=== PATIENT | female | born 1990 | race Caucasian/White ===

== ENCOUNTER 2020-03-22 00:32 | Outpatient (CLI) | payer BC ==
[2020-03-22 01:49] VITALS: BP 130/72; PULSE 76; RESP 16; TEMP 97.1
--- NOTE | 2020-03-22 07:15 | P.MSEPDOC ---
Presenting Problems - Arrival Data Date of Arrival on Unit: 03/22/20 Time of Arrival on Unit: 00:32 Mode of Transport: Ambulatory - Complaint OB-Reason for Admission/Chief Complaint: Possible Onset of Labor Medical History - Information : 1 Para: 0 Term: 0 : 0 Abortions: Spontaneous or Elective: 0 Number of Living Children: 0 - Gestational Age Gestational Age by NIRALI (wks/days): 39 Weeks and 4 Days Review of Systems - Review of Systems Constitutional: No problems Breast: No problems ENT: No problems Cardiovascular: No problems Respiratory: No problems Gastrointestinal: No problems Genitourinary: No problems Musculoskeletal: No problems Neurological: No problems Skin: No problems Vital Signs - Temperature Temperature: 97.1 F Temperature Source: Oral - Pulse Right Pulse Rate: 76 Pulse Assessment Method: Automatic Cuff - Respirations Respiratory Rate: 16 Oxygen Delivery Method: Room Air O2 Sat by Pulse Oximetry: 98 - Blood Pressure Right Arm Blood Pressure: 130/72 Blood Pressure Mean: 91 Blood Pressure Source: Automatic Cuff Medical Screen Scoring (Pre) - Cervical Exam Dilation: 1-3 cm = 1 Effacement: More than 50% = 2 Membranes: Intact - Uterine Contractions Frequency: N/A Duration: N/A Intensity: N/A - Maternal Vital Signs Maternal Temperature: N/A Maternal Blood Pressure: N/A Signs of Preeclampsia: N/A Maternal Respirations: N/A - Maternal Trauma Maternal Trauma: N/A - Assessment - Baby A Baseline FHR: 130 Heart Rate - NICHD Category: Category I (Normal) = 0 NST: Reactive Position: N/A Station: N/A - Total Score - Baby A Total Score - Baby A: 3 - Total Score - Baby B Total Score - Baby B: 3 - Total Score - Baby C Total Score - Baby C: 3 - Level of Risk - Baby A Level of Risk - Baby A: Low (0-5) - Level of Risk - Baby B Level of Risk - Baby B: Low (0-5) - Level of Risk - Baby C Level of Risk - Baby C: Low (0-5) Physician Notification (Pre) - Physician Notified Physician Notified Date: 03/22/20 Physician Notified Time: 01:41 New Order Received: Yes (discharge home with instructions) Disposition - Disposition OB Disposition: Discharge to home Discharge Date: 03/22/20 Discharge Time: 01:45 I agree with the RN Medical Screening Exam: Yes Risk & Benefit of care provided described in d/c instruction: Yes Diagnosis: FALSE LABOR AT OR AFTER 37 COMPLETED WEEKS OF GESTATION
== END 2020-03-22 01:45 | disposition home or self-care (01) ==
LOC: FBPOP 00:32
PROVIDERS: ATTEND Obstetrics & Gynecology
DX: O47.1 False labor at or after 37 completed weeks of gestation (principal); Z3A.39 39 weeks gestation of pregnancy
CPT/HCPCS: 59025; 99213

== ENCOUNTER 2020-03-22 22:27 | Inpatient (IN) | payer BC ==
[2020-03-22] MEDS ORDERED: OXYTOCIN 10 UNIT/ML 1 ML VIAL IM PRN (23:10)
[2020-03-22] MEDS ORDERED: CARBOPROST TROMETHAMINE 250 MCG/ML 1 ML AMP IM PRN (23:10)
[2020-03-22] MEDS ORDERED: LIDOCAINE 0.5% (PF) 5 MG/ML (50 ML SDV) SQ PRN (23:10)
[2020-03-22] MEDS ORDERED: METHYLERGONOVINE 0.2 MG/ML 1 ML AMP IM PRN (23:10)
[2020-03-22] MEDS ORDERED: TERBUTALINE 1 MG/ML VIAL SQ PRN (23:10)
[2020-03-22] MEDS ORDERED: AMPICILLIN 2,000 MG in SODIUM CHLORIDE 0.9% 100 ML IVPB STA (23:33)
--- NOTE | 2020-03-22 23:56 | P.HPOB ---
History of Present Illness H&P Date: 03/22/20 Chief Complaint: Contractions This patient is a pleasant 29-year-old 1 para 0 female estimated date of confinement 03/25/2020 estimated gestational age 39-4/7 weeks who presents to labor and delivery with complaints of contractions. She is here earlier today and was 1-2 cm dilated is now 4 cm dilated early labor. Patient did have a slightly positive amnio sure however had some blood on the test strip therefore's thought to be negative. Patient denies any leaking of fluid. care is per Dr. Villeda appears to be uncomplicated. Patient does have a positive group B strep culture. Review of Systems Genitourinary: Reports Menstruation: Reports amenorrhea Past Medical History Past Medical History: No Reported History History of Any Multi-Drug Resistant Organisms: MRSA Date of last positivie culture/infection: 2012 MDRO Source:: R leg Past Surgical History: No Surgical Hx Reported Past Anesthesia/Blood Transfusion Reactions: No Reported Reaction Past Psychological History: No Psychological Hx Reported Smoking Status: Never smoker Past Alcohol Use History: None Reported Past Drug Use History: None Reported Medications and Allergies Home Medications Medication Instructions Recorded Confirmed Type Pnv,Calcium 72/Iron/Folic Acid 1 tab PO DAILY 03/22/20 03/22/20 History [ Plus Tablet] Allergies Allergy/AdvReac Type Severity Reaction Status Date / Time Sulfa (Sulfonamide Allergy Rash/Hives Verified 03/22/20 22:44 Antibiotics) sulfamethoxazole Allergy Rash/Hives Verified 03/22/20 22:44 [From Bactrim] trimethoprim [From Bactrim] Allergy Rash/Hives Verified 03/22/20 22:44 Exam Intake and Output 03/22/20 03/22/20 03/23/20 14:59 22:59 06:59 Other: Weight 85.729 kg - OBG Physical Exam Abdomen: bowel sounds normal, no diffuse tenderness, no bruit present, no guarding noted, no hepatomegaly, no splenomegaly, no mass Vulva: both: normal Vagina: normal moisture, no discharge Cervix: no lesion (Cervix is 4 cm dilated 80 percent effaced -2 station), no discharge Uterus: enlarged (Fundal height was 39 cm in the office) Results blood work shows she is A-, rubella immune, RPR is nonreactive, hepatitis B is negative, HIV is nonreactive, Glucola was abnormal with a normal three-hour gtt. Group B strep was positive. Patient received RhoGAM on January 02. Growth ultrasound was normal. Assessment and Plan Assessment: This is a pleasant 29-year-old 1 para 0 female 39-4/7 weeks gestation presents to labor and delivery in early labor. Patient also has a positive strep culture. Plan is antibiotic prophylaxis and anticipate vaginal delivery. (1) 39 weeks gestation of Current Visit: Yes Status: Acute Code(s): Z3A.39 - 39 WEEKS GESTATION OF SNOMED Code(s): 25914988 (2) Normal labor Current Visit: Yes Status: Acute Code(s): O80 - ENCOUNTER FOR FULL-TERM UNCOMPLICATED DELIVERY; Z37.9 - OUTCOME OF DELIVERY, UNSPECIFIED SNOMED Code( s): 66627288 (3) Group B streptococcal carriage complicating Current Visit: Yes Status: Acute Code(s): O99.820 - STREPTOCOCCUS B CARRIER STATE COMPLICATING SNOMED Code(s): 695476974650277
[2020-03-23] MEDS: LACTATED RINGERS 1,000 ML IV SCH ×3 (00:24→09:12)
[2020-03-23 00:53] LABS: Basophils % (A) 0 %; Eosinophils # (A) 0.1 k/uL (0-0.7); Eosinophils % (A) 1 %; HCT 37.8 % (34.0-46.0); HGB 12.4 gm/dL (11.4-16.0); Lymphocytes # (A) 1.1 k/uL (1.0-4.8); Lymphocytes % (A) 12 %; MCH 29.2 pg (25.0-35.0); MCHC 32.8 g/dL (31.0-37.0); MCV 88.9 fL (80.0-100.0); Mean Platelet Volume 7.9; Monocytes # (A) 0.5 k/uL (0-1.0); Monocytes % (A) 6 %; Neutrophils # (A) 7.2 k/uL (1.3-7.7); Neutrophils % (A) 79 %; Platelet Count 121 k/uL (150-450); RBC 4.25 m/uL (3.80-5.40); RDW 13.6 % (11.5-15.5)
[2020-03-23] MEDS ORDERED: SODIUM CHLORIDE 0.9% 100 ML BAG ONE (01:20)
[2020-03-23] MEDS ORDERED: ROPIVACAINE 5MG/ML 20ML VIAL ONE (01:20)
[2020-03-23] MEDS ORDERED: fentaNYL (PF) 50 MCG/ML 5 ML AMP ONE (01:20)
[2020-03-23] MEDS ORDERED: OXYTOCIN 30 UNITS/500 ML NS 30 UNIT in SALINE 1 500ML.BAG IV SCH (03:15)
[2020-03-23] MEDS: AMPICILLIN 1,000 MG in SODIUM CHLORIDE 0.9% 50 ML IVPB SCH ×2 (03:57→09:10)
[2020-03-23] MEDS ORDERED: OXYTOCIN 20 UNITS/1000 ML NS 1,000 ML IV SCH (08:50)
[2020-03-23] MEDS ORDERED: SIMETHICONE 80 MG CHEWABLE PO PRN (08:50)
[2020-03-23] MEDS ORDERED: diphenhydrAMINE 50 MG/ML 1 ML VIAL IVP PRN (08:50)
[2020-03-23] MEDS ORDERED: diphenhydrAMINE 25 MG CAP PO PRN (08:50)
[2020-03-23] MEDS ORDERED: ZOLPIDEM 5 MG TAB PO PRN (08:50)
[2020-03-23] MEDS ORDERED: LANOLIN CREAM 5 GM TUBE TOPICAL PRN (08:50)
[2020-03-23] MEDS ORDERED: BENZOCAINE/MENTHOL SPRAY 1 GM/SPRAY AEROSOL TOPICAL PRN (08:50)
[2020-03-23] MEDS ORDERED: Rhogam IMMUNE GLOBULIN 1,500 UNIT/1 ML IM ONE (08:50)
[2020-03-23] MEDS ORDERED: ACETAMINOPHEN TAB 325 MG TAB PO PRN (08:50)
[2020-03-23] MEDS ORDERED: HYDROCORTISONE 2.5% RECTAL CREAM 30 GM TUBE RECTAL PRN (08:50)
[2020-03-23] MEDS: SENNOSIDES-DOCUSATE SODIUM 1 EACH TAB PO SCH ×2 (09:10→20:11)
[2020-03-23] MEDS: IBUPROFEN 600 MG TAB PO PRN ×2 (09:11→20:11)
--- NOTE | 2020-03-23 12:40 | P.PROBDLV ---
Vaginal Delivery Note - . Vaginal Delivery Note: Normal spontaneous vaginal delivery viable male infant Apgars 7 and 8 delivery time is 0829 hours. Please see dictated H&P for intimate details of this patient's admission. Brief summary this pleasant 29-year-old 1 para 0 female estimated gestational age 39-4/7 weeks presents to labor and delivery with complaints of painful contractions throughout the day. Patient was previously was 1-2 cm dilated is now 3 cm dilated in active labor. Patient is a positive group B strep culture and therefore is given antibiotic prophylaxis. She is artificial rupture membranes at 4 cm dilated for clear fluid. Patient does request an epidural for pain control with good relief. Labor progresses normally and she pushes the head to the perineum. Posterior perineum is supported. At this time is evident that episiotomy is necessary and therefore I make a midline episiotomy with local anesthetic. With this done with controlled delivery of the infant's head over the perineum. Mouth and nares are bulb suctioned. There is a tight nuchal cord this is doubly clamped cut and then reduced. At this time is noted infant's shoulders are transverse with maternal effort she easily delivered the anterior posterior shoulder and rest this infant's body. This is a vigorous viable male infant Apgars are 7 and 8 delivery time was 0829 hours. After delivery of the the placenta spontaneously delivered intact. Estimated blood loss is approximately 200 mL. There is a midline second-degree laceration is repaired with 3-0 Vicryl in the usual fashion. Excellent reapproximation is noted. Patient did develop a temperature right after delivery and therefore she'll be continued on some IV antibiotics for 24 hours. All counts correct 3. No complications. Mother stable delivery room, baby the taken to special care for observation.
[2020-03-24] MEDS: IBUPROFEN 600 MG TAB PO PRN ×3 (01:46→20:09)
[2020-03-24 06:13] LABS: Basophils % (A) 0 %; Eosinophils # (A) 0.1 k/uL (0-0.7); Eosinophils % (A) 1 %; HCT 28.6 % (34.0-46.0); Lymphocytes # (A) 1.2 k/uL (1.0-4.8); Lymphocytes % (A) 13 %; MCH 30.2 pg (25.0-35.0); MCHC 33.4 g/dL (31.0-37.0); MCV 90.5 fL (80.0-100.0); Mean Platelet Volume 8.7; Monocytes # (A) 0.7 k/uL (0-1.0); Monocytes % (A) 7 %; Neutrophils # (A) 7.1 k/uL (1.3-7.7); Neutrophils % (A) 77 %; Platelet Count 104 k/uL (150-450); RBC 3.16 m/uL (3.80-5.40); RDW 13.9 % (11.5-15.5); WBC 9.1 k/uL (3.8-10.6)
[2020-03-24 06:22] LABS: HGB 9.5 gm/dL (11.4-16.0)
--- NOTE | 2020-03-24 06:35 | P.PNOBGVD ---
Subjective - Subjective Patient reports: Reports appetite normal, Reports voiding normally, Reports pain well controlled, Reports ambulating normally : doing well Objective - Latest Vital Signs Latest vital signs: Vital Signs Temp Pulse Resp BP Pulse Ox 03/24/20 04:00 97.8 F 71 16 100/53 100 03/24/20 00:00 97.9 F 81 16 120/67 100 03/23/20 20:00 98.2 F 95 16 120/63 96 03/23/20 15:53 98.2 F 101 H 18 113/65 95 03/23/20 10:45 99.2 F 102 H 18 127/59 03/23/20 10:15 99.1 F 93 18 127/75 03/23/20 09:45 99.6 F 97 18 127/72 03/23/20 09:30 103 H 130/72 03/23/20 09:15 99.2 F 95 18 128/69 03/23/20 09:00 99.7 F H 113 H 18 134/71 03/23/20 08:45 100.5 F H 120 H 18 135/62 Intake and Output 03/23/20 03/23/20 03/24/20 14:59 22:59 06:59 Intake Total 120 Output Total 200 Balance -200 120 Intake: Oral 120 Output: Estimated Blood Loss 200 Other: # Voids 1 1 3 - Exam Lungs: bilateral: normal Chest: Normal S1, Normal S2 Extremities: Present: normal Abdomen: Present: normal appearance, soft Uterus: Present: normal, firm - Labs Labs: Abnormal Lab Results - Last 24 Hours (Table) 03/24/20 Range/Units 05:56 RBC 3.16 L (3.80-5.40) m/uL Hgb 9.5 L D (11.4-16.0) gm/dL Hct 28.6 L (34.0-46.0) % Plt Count 104 L (150-450) k/uL Assessment and Plan Assessment: day #1. Patient is resting without complaints. Vital signs are stable she is afebrile. Uterus is firm nontender and she is having normal loch ia. Plan today is to continue routine care. I did give her some IV antibiotics due to a low-grade temperature at the end of labor however white count today is normal and therefore we'll discontinue those. (1) 39 weeks gestation of Current Visit: Yes Status: Acute Code(s): Z3A.39 - 39 WEEKS GESTATION OF SNOMED Code(s): 45367257 (2) Normal labor Current Visit: Yes Status: Acute Code(s): O80 - ENCOUNTER FOR FULL-TERM UNCOMPLICATED DELIVERY; Z37.9 - OUTCOME OF DELIVERY, UNSPECIFIED SNOMED Code(s): 98915673 (3) Group B streptococcal carriage complicating Current Visit: Yes Status: Acute Code(s): O99.820 - STREPTOCOCCUS B CARRIER STATE COMPLICATING SNOMED Code(s): 350097391615153
[2020-03-24] MEDS: SENNOSIDES-DOCUSATE SODIUM 1 EACH TAB PO SCH ×2 (11:56→20:10)
[2020-03-25] MEDS: IBUPROFEN 600 MG TAB PO PRN ×2 (04:59→14:40)
--- NOTE | 2020-03-25 06:24 | P.PNOBGVD ---
Subjective - Subjective Patient reports: Reports appetite normal, Reports voiding normally, Reports pain well controlled, Reports ambulating normally : doing well Objective - Latest Vital Signs Latest vital signs: Vital Signs Temp Pulse Resp BP Pulse Ox 03/25/20 00:00 98.3 F 100 15 123/74 100 03/24/20 16:00 98.1 F 91 18 114/69 95 03/24/20 08:00 97.9 F 85 16 110/72 97 Intake and Output 03/24/20 03/24/20 03/25/20 14:59 22:59 06:59 Intake Total 300 Balance 300 Intake: Oral 300 Other: # Voids 1 1 1 # Bowel Movements 1 - Exam Lungs: bilateral: normal Chest: Normal S1, Normal S2 Extremities: Present: normal Abdomen: Present: normal appearance, soft Uterus: Present: normal, firm Assessment and Plan Assessment: day #2. Patient is resting without complaints. Vital signs are stable she is afebrile. Uterus is firm nontender and she is having normal lochia. My impression this is a normal course. Plan is to continue routine care discharge home later today. (1) 39 weeks gestation of Current Visit: Yes Status: Acute Code(s): Z3A.39 - 39 WEEKS GESTATION OF SNOMED Code(s): 24827736 (2) Normal labor Current Visit: Yes Status: Acute Code(s): O80 - ENCOUNTER FOR FULL-TERM UNCOMPLICATED DELIVERY; Z37.9 - OUTCOME OF DELIVERY, UNSPECIFIED SNOMED Code(s): 55359341 (3) Group B streptococcal carriage complicating Current Visit: Yes Status: Acute Code(s): O99.820 - STREPTOCOCCUS B CARRIER STATE COMPLICATING SNOMED Code(s): 581815319732796
--- NOTE | 2020-03-25 06:30 | P.DS ---
Providers Date of admission: 03/22/20 22:55 Expected date of discharge: 03/25/20 Attending physician: Karyn Villeda Primary care physician: Stated None - Discharge Diagnosis(es) (1) 39 weeks gestation of Current Visit: Yes Status: Acute (2) Normal labor Current Visit: Yes Status: Acute (3) Group B streptococcal carriage complicating Current Visit: Yes Status: Acute Hospital Course: Please see dictated H&P for intimate details of this patient's admission. Brief summary this pleasant 29 -year-old 1 para 0 female 39-4/7 weeks gestation who is admitted to labor and delivery in active labor. Patient did have a positive group B strep and was given antibiotics in labor. Patient did develop a maternal temperature at the end of her labor and therefore was continued on them for 24 hours. Post hemorrhage 2 she was doing very well felt to be stable for discharge home follow up with Dr. Villeda and 6 weeks. Procedures: Normal spontaneous vaginal delivery. Patient Condition at Discharge: Good Plan - Discharge Summary New Discharge Prescriptions: New Ibuprofen [Motrin] 600 mg PO Q6HR PRN #40 tab PRN Reason: Mild Pain Or Fever >= 100.5 No Action Pnv,Calcium 72/Iron/Folic Acid [ Plus Tablet] 1 tab PO DAILY Discharge Medication List Pnv,Calcium 72/Iron/Folic Acid [ Plus Tablet] 1 tab PO DAILY 03/22/20 [History] Ibuprofen [Motrin] 600 mg PO Q6HR PRN #40 tab 03/25/20 [Rx] Follow up Appointment(s)/Referral(s): James Rivera MD [STAFF PHYSICIAN] - 05/07/20 3:45 pm Patient Instructions/Handouts: Vaginal Delivery (DC) Activity/Diet/Wound Care/Special Instructions: No intercourse or anything per vagina for 6 weeks. Please call if any fever, chills, excessive vaginal bleeding, and/or abdominal pain. Discharge Disposition: HOME SELF-CARE
[2020-03-25 08:33] VITALS: BP 109/75; PULSE 74; RESP 18; TEMP 98.2
[2020-03-25] MEDS: SENNOSIDES-DOCUSATE SODIUM 1 EACH TAB PO SCH (08:52)
== END 2020-03-25 15:45 | disposition home or self-care (01) | DRG 806 ==
LOC: FBPOP 22:27 → 4FBP 22:55
PROVIDERS: ADMIT Obstetrics & Gynecology; ATTEND Obstetrics & Gynecology
PROC: 10E0XZZ Delivery of Products of Conception, External Approach (ICD-10-PCS; principal; 2020-03-23)
PROC: 0KQM0ZZ Repair Perineum Muscle, Open Approach (ICD-10-PCS; 2020-03-23)
PROC: 10907ZC Drainage of Amniotic Fluid, Therapeutic from Products of Conception, Via Natural or Artificial Opening (ICD-10-PCS; 2020-03-23)
PROC: 3E0R3BZ Introduction of Anesthetic Agent into Spinal Canal, Percutaneous Approach (ICD-10-PCS; 2020-03-23)
DX: O99.824 Streptococcus B carrier state complicating childbirth (principal); O75.2 Pyrexia during labor, not elsewhere classified; Z37.0 Single live birth; O69.81X0 Labor and delivery complicated by cord around neck, without compression, not applicable or unspecified; O70.1 Second degree perineal laceration during delivery; O72.1 Other immediate postpartum hemorrhage; Z3A.39 39 weeks gestation of pregnancy; Z86.14 Personal history of Methicillin resistant Staphylococcus aureus infection; Z79.899 Other long term (current) drug therapy; Z88.2 Allergy status to sulfonamides
CPT/HCPCS: 59025; 84112; 85025; 85461; 86850; 86870; 86880; 86900; 86901; 88307; 99213